=== PATIENT | female | born 1945 | race Caucasian/White ===

== ENCOUNTER → 2016-10-21 | Outpatient (CLI) | payer OTHER ==
--- NOTE | 2016-10-21 18:45 | CT ---
CT Head (Without Contrast) October 21, 2016 Indication: Normal pressure hydrocephalus. Follow up. Technique: Standard noncontrast head CT protocol utilizing 5 mm thick collimated slices and field of view of 23 cm. Dose reduction techniques were utilized. Comparison: Head CT dated October 29, 2015. Findings: The right transparietal ventriculoperitoneal shunt catheter, coursing through the right lat eral ventricle with the tip in the 3rd ventricular region is unchanged in position. Minimal low-atten uation white matter along the course of the shunt is unchanged. No hemorrhage or mass effect. The 3rd and lateral ventricles have minimally increased in caliber. For example, the anterior aspect of the 3rd ventricle now measures 8 mm medial to lateral (previously 6). No subdural hematoma. The low-density subarachnoid spaces over cerebral convexity have decreased. Gra y-white interfaces are preserved. No evidence of cortical ischemia. The paranasal sinuses are clear except for layering fluid in bilateral maxillary sinuses and mild muc osal thickening in the right maxillary sinus (new since October 2015). Impression: 1. Right transparietal ventriculoperitoneal shunt catheter remains in good position. 2. Minimal increased caliber ventricular system since one year prior. 3. No subdural hematoma or cortical ischemia.
== END ==
LOC: FIMAGING 14:43
PROVIDERS: ATTEND Physician Assistant Surgical
DX: G91.2 (Idiopathic) normal pressure hydrocephalus (principal); Z98.2 Presence of cerebrospinal fluid drainage device

== ENCOUNTER → 2018-10-12 | Outpatient (CLI) | payer OTHER | LOC: FIMAGING 13:46 | PROVIDERS: ATTEND Physician Assistant Surgical | DX: G91.2 (Idiopathic) normal pressure hydrocephalus (principal); Z98.2 Presence of cerebrospinal fluid drainage device ==